=== PATIENT | male | born 1945 | race Caucasian/White ===

== ENCOUNTER 2019-08-20 06:41 | Day surgery (SDC) | payer OTHER ==
[2019-08-20] MEDS ORDERED: fentaNYL 100 MCG/2 ML SDV ONE (07:23)
[2019-08-20] MEDS ORDERED: Midazolam 1 MG/ML 2 ML SDV ONE (07:23)
[2019-08-20] MEDS ORDERED: Propofol 200 MG/20 ML SDV ONE (07:23)
[2019-08-20] MEDS ORDERED: Sodium Chloride 0.9% 1,000 ML IV SCH (07:30)
--- NOTE | 2019-08-20 13:19 | OR ---
DATE OF PROCEDURE: 08/20/2019 SURGEON: Josiah Venegas MD PROCEDURE: Colonoscopy. PREOPERATIVE DIAGNOSIS: Screening colonoscopy. POSTOPERATIVE DIAGNOSIS: Screening colonoscopy. FINDINGS: 1. Diverticulosis, mild, limited to sigmoid colon. 2. Transverse colon polyp, approximately 5 mm, completely removed using cold biopsy snare device. RISKS: Risks, benefits, alternatives, and limitations including, but not limited to infection, bleeding, and perforation were explained to the patient, who wished to proceed. PROCEDURE IN DETAIL: The patient was placed in a left lateral decubitus position. Digital rectal exam was performed without abnormality. Scope was introduced and advanced atraumatically to the ileocecal valve. A photo was taken of this. Scope was brought back through the ascending, transverse, descending colon, and retroflexed. The aforementioned polyp was identified and completely removed as described above. No abnormal bleeding was noted. The diverticulosis would be described as mild and limited to sigmoid colon without evidence of diverticulitis or bleeding. No abnormalities on retroflexion. The patient tolerated the procedure well. Josiah Venegas MD /[id number]
== END 2019-08-20 09:50 | disposition home or self-care (01) ==
LOC: JP.SDS 06:41
PROVIDERS: ATTEND Surgery
DX: Z12.11 Encounter for screening for malignant neoplasm of colon (principal); K57.30 Diverticulosis of large intestine without perforation or abscess without bleeding; K63.5 Polyp of colon
CPT/HCPCS: 45380; J2250; J2704; J3010; J7030; 88305

== ENCOUNTER 2022-01-01 09:48 | Emergency (ER) | payer OTHER ==
[2022-01-01] MEDS ORDERED: Albuterol/Ipratropium 3.0-0.5 MG/3 ML Neb Soln NEB ONE (10:06)
[2022-01-01] MEDS ORDERED: Doxycycline 100 MG Cap PO ONE (11:11)
[2022-01-01] MEDS ORDERED: predniSONE 20 MG Tab PO ONE (11:11)
== END 2022-01-01 12:12 | disposition home or self-care (01) ==
LOC: JP.ED 09:48
DX: U07.1 COVID-19 (principal); J44.1 Chronic obstructive pulmonary disease with (acute) exacerbation; I25.10 Atherosclerotic heart disease of native coronary artery without angina pectoris; E11.9 Type 2 diabetes mellitus without complications; I10 Essential (primary) hypertension; E66.9 Obesity, unspecified; Z68.33 Body mass index [BMI] 33.0-33.9, adult; Z79.82 Long term (current) use of aspirin; Z87.891 Personal history of nicotine dependence
CPT/HCPCS: 36415; 71045; 80048; 82803; 83880; 84145; 85025; 94640; 99283; A9270; J7512; J7620